=== PATIENT | female | born 2000 | race Caucasian/White ===

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

== ENCOUNTER 2024-06-29 15:38 | Emergency (ER) | payer OTHER, SELFPAY ==
[2024-06-29 16:42] VITALS: BP 154/89; PULSE 98; RESP 18; TEMP 37.4; O2SAT 99; BMI 48.2
--- NOTE | 2024-06-29 18:26 | ED_ITS ---
HPI - Extremity Injury (Lower) General Chief Complaint: Extremity Injury, Lower Stated Complaint: Rt foot ingrown toenail Time Seen by Provider: 06/29/24 17:25 Source: patient, RN notes reviewed and old records reviewed Mode of arrival: ambulatory History of Present Illness ED Provider: Michelle Plasencia PA-C HPI Narrative: 24-year-old female with a past medical history of ingrown toenails presenting to the ED complaining of painful, swollen right great toe w/ ingrown toenail x1 week. States tried to self remove at home about 1 week ago however feels as there is retained nail. Reports slight drainage from area and area feels hot. Denies fever, chills, injury Related Data Previous Rx's ?Medication ?Instructions ?Recorded cephalexin 500 mg capsule 500 mg PO QID 7 days #28 caps 06/29/24 Allergies Allergy/AdvReac Type Severity Reaction Status Date / Time tree nut Allergy Hives Verified 06/29/24 16:43 Review of Systems Review of Systems: Yes all other systems are reviewed and are negative Constitutional: Constitutional: Reports as per HPI [facility] Past Medical History Attestation statement: The following information was validated with the patient. Source: old records reviewed Social History Social History Advance Directives: No Advance Directives Information Provided: No Physical Exam Vital Signs: Vital Signs: Last Vital Signs Temp 99 F 06/29/24 18:37 Pulse 91 06/29/24 18:37 Resp 20 06/29/24 18:37 BP 130/88 06/29/24 18:37 Pulse Ox 98 06/29/24 18:37 O2 Del Method Room Air 06/29/24 18:37 BMI result Body Mass Index 48.2 Const: General: cooperative, healthy appearing and no acute distress Orientation/consciousness: patient oriented x3 Limitations: no limitations HEENT: Head: Yes normal to inspection and Yes atraumatic Ears: hearing grossly normal bilaterally General nose exam: Normal external nose present Face and sinus: Yes normal facial exam Eyes: General: appearance normal, both eyes and all related structures EOM: EOMs intact bilaterally Neck: Neck: Yes normal visual inspection and Yes no meningeal signs Resp: Effort & Inspection: normal respiratory effort and no respiratory distress Cardio: Rate: regular rate Skin: Other: + ingrown toenail noted to right great t oe lateral aspect with slight erythema and swelling. No fluctuance. No streaking. Tender to palpation Rashes: no rashes Neuro: General: patient oriented x3, tone normal and no meningeal signs Cranial nerves: Yes CN's II-XII intact bilaterally Gait exam (Neuro): Normal gait present Extrem: General: Yes normal to inspection Medical Decision Making Medical Decision Making MDM Narrative: 24-year-old female with a past medical history of ingrown toenails presenting to the ED complaining of painful, swollen right great toe w/ ingrown toenail x1 week. On exam vital signs stable, NAD, nontoxic appearing, physical exam as noted above with ingrown toenail to right great toe with infection/likely superficial abscess/pus collection. No evidence of septic joint/arthritis. Offered/recommended removal/drainage however patient declined and would rather trial p.o. antibiotics and warm soaks/compresses at home first Recommended close podiatry follow-up Please refer to course for remaining clinical decision making, interpretation of labs/imaging results, and discussions with consultants and/or family members. Results discussed with patient including worrisome signs and symptoms and strict return precautions, and when to return to the emergency department. They verbalized understanding and feel safe for discharge at this time. Differential Diagnosis Differential Diagnoses: The differential diagnosis associated with the presentation includes As above External Record Review External record reviewed: Inpatient record, Office record, Outpatient record, Prior outpatient labs, Prior outpatient radiology, Primary care record and Outside ED record Tests considered The following testing was considered but not selected: As above Prescription Management I considered prescription management with: Pain Medication and Antibiotic Chronic Conditions Patient?s care impacted by: Other Discharge Plan Discharge Clinical Impression: Ingrown left big toenail Patient Disposition: Home, Self-Care Instructions: Ingrown Nail (ED) Additional Instructions: Keflex as an antibiotic please take as prescribed until completion Please practice warm soaks at home You need to follow-up with Podiatry If area persists or worsens, you have active drainage or fever return to the ED Prescriptions: New cephalexin 500 mg capsule 500 mg PO QID 7 Days Qty: 28 0RF Referrals: True Mcdowell MD [Physician] - Joo Mcdowell DPM [Physician] - Print Language: Chinese
[2024-06-29 18:37] VITALS: BP 130/88; PULSE 91; RESP 20; TEMP 37.2; O2SAT 98
[2024-06-29 19:31] VITALS: BP 130/88; PULSE 91; RESP 20; TEMP 37.2; O2SAT 98
== END 2024-06-29 19:31 | disposition home or self-care (01) ==
PROVIDERS: Emergency Provider Emergency Medicine Emergency Medical Services
DX: L60.0 Ingrowing nail (principal); M79.89 Other specified soft tissue disorders
CPT/HCPCS: 99282